=== PATIENT | female | born 1985 | race Caucasian/White ===

== ENCOUNTER 2024-09-09 22:13 | Outpatient (REF) | payer BC, SELFPAY | END 2024-09-09 22:14 | disposition home or self-care (01) | LOC: NCHCN 22:13 | PROVIDERS: Visit Provider Family Medicine | DX: R30.0 Dysuria (principal); R82.89 Other abnormal findings on cytological and histological examination of urine | CPT/HCPCS: 87077; 87086; 87186 ==